=== PATIENT | female | born 1970 | race Caucasian/White ===

== ENCOUNTER → 2019-03-22 12:12 | Outpatient (BNVA) | payer MEDICARE, BC, SELFPAY | PROVIDERS: Family Provider Nurse Practitioner Family; PCP Nurse Practitioner Family; Visit Provider Nurse Practitioner Family | DX: D64.9 Anemia, unspecified (principal); E03.9 Hypothyroidism, unspecified; Z79.899 Other long term (current) drug therapy; G47.10 Hypersomnia, unspecified; E55.9 Vitamin D deficiency, unspecified | CPT/HCPCS: 36415; 80053; 81001; 82728; 83036; 83540; 83550; 84439; 84443; 84481; 85025 ==

== ENCOUNTER → 2019-03-25 08:54 | Outpatient (BNVA) | payer MEDICARE, BC, SELFPAY | PROVIDERS: Family Provider Nurse Practitioner Family; PCP Nurse Practitioner Family; Visit Provider Social Worker Clinical | DX: F43.12 Post-traumatic stress disorder, chronic (principal); F31.4 Bipolar disorder, current episode depressed, severe, without psychotic features | CPT/HCPCS: 90834 ==

== ENCOUNTER → 2019-04-04 12:52 | Outpatient (BNVA) | payer MEDICARE, BC, SELFPAY | PROVIDERS: Family Provider Nurse Practitioner Family; PCP Nurse Practitioner Family; Visit Provider Social Worker Clinical | DX: F43.12 Post-traumatic stress disorder, chronic (principal); F31.4 Bipolar disorder, current episode depressed, severe, without psychotic features | CPT/HCPCS: 90834 ==

== ENCOUNTER → 2019-04-23 12:09 | Outpatient (BNVA) | payer MEDICARE, BC, SELFPAY | PROVIDERS: Family Provider Nurse Practitioner Family; PCP Nurse Practitioner Family; Visit Provider Nurse Practitioner Family | DX: R31.9 Hematuria, unspecified (principal) | CPT/HCPCS: 81001 ==

== ENCOUNTER 2019-04-29 08:00 | Outpatient (CLI) | payer MEDICARE, BC, SELFPAY | END 2019-04-29 09:00 | disposition home or self-care (01) | LOC: SLEEP 10-01 12:50 | PROVIDERS: PCP Nurse Practitioner Family; Visit Provider Nurse Practitioner Family | DX: G47.10 Hypersomnia, unspecified (principal); F31.5 Bipolar disorder, current episode depressed, severe, with psychotic features; F43.12 Post-traumatic stress disorder, chronic | CPT/HCPCS: 90834 ==

== ENCOUNTER → 2019-05-16 09:48 | Outpatient (BNVA) | payer MEDICARE, BC, SELFPAY | PROVIDERS: Family Provider Nurse Practitioner Family; PCP Nurse Practitioner Family; Visit Provider Social Worker Clinical | DX: F43.12 Post-traumatic stress disorder, chronic (principal); F31.5 Bipolar disorder, current episode depressed, severe, with psychotic features | CPT/HCPCS: 90834 ==

== ENCOUNTER → 2019-05-23 11:07 | Outpatient (BNVA) | payer MEDICARE, BC, SELFPAY | PROVIDERS: Family Provider Nurse Practitioner Family; PCP Nurse Practitioner Family; Visit Provider Social Worker Clinical | DX: F43.12 Post-traumatic stress disorder, chronic (principal); F31.5 Bipolar disorder, current episode depressed, severe, with psychotic features | CPT/HCPCS: 90834 ==

== ENCOUNTER → 2019-05-30 08:33 | Outpatient (BNVA) | payer MEDICARE, BC, SELFPAY | PROVIDERS: Family Provider Nurse Practitioner Family; PCP Nurse Practitioner Family; Visit Provider Social Worker Clinical | DX: F43.12 Post-traumatic stress disorder, chronic (principal); F31.5 Bipolar disorder, current episode depressed, severe, with psychotic features | CPT/HCPCS: 90834 ==

== ENCOUNTER → 2019-06-06 07:53 | Outpatient (BNVA) | payer MEDICARE, BC, SELFPAY | PROVIDERS: Family Provider Nurse Practitioner Family; PCP Nurse Practitioner Family; Visit Provider Social Worker Clinical | DX: F43.12 Post-traumatic stress disorder, chronic (principal); F31.5 Bipolar disorder, current episode depressed, severe, with psychotic features | CPT/HCPCS: 90834 ==

== ENCOUNTER → 2019-06-14 07:50 | Outpatient (BNVA) | payer MEDICARE, BC, SELFPAY | PROVIDERS: Family Provider Nurse Practitioner Family; PCP Nurse Practitioner Family; Visit Provider Social Worker Clinical | DX: F43.12 Post-traumatic stress disorder, chronic (principal); F31.5 Bipolar disorder, current episode depressed, severe, with psychotic features | CPT/HCPCS: 90832 ==

== ENCOUNTER → 2019-06-20 08:14 | Outpatient (BNVA) | payer MEDICARE, BC, SELFPAY | PROVIDERS: Family Provider Nurse Practitioner Family; PCP Nurse Practitioner Family; Visit Provider Social Worker Clinical | DX: F43.12 Post-traumatic stress disorder, chronic (principal); F31.5 Bipolar disorder, current episode depressed, severe, with psychotic features | CPT/HCPCS: 90834 ==

== ENCOUNTER → 2019-06-27 08:56 | Outpatient (BNVA) | payer MEDICARE, BC, SELFPAY | PROVIDERS: Family Provider Nurse Practitioner Family; Visit Provider Social Worker Clinical | DX: F43.12 Post-traumatic stress disorder, chronic (principal); F31.5 Bipolar disorder, current episode depressed, severe, with psychotic features | CPT/HCPCS: 90834 ==

== ENCOUNTER → 2019-07-04 07:50 | Outpatient (BNVA) | payer MEDICARE, BC, SELFPAY | PROVIDERS: Family Provider Nurse Practitioner Family; Visit Provider Social Worker Clinical | DX: F43.12 Post-traumatic stress disorder, chronic (principal); F31.5 Bipolar disorder, current episode depressed, severe, with psychotic features | CPT/HCPCS: 90834 ==

== ENCOUNTER → 2019-07-10 07:48 | Outpatient (BNVA) | payer MEDICARE, BC, SELFPAY | PROVIDERS: Family Provider Nurse Practitioner Family; Referring Provider Social Worker Clinical; Visit Provider Social Worker Clinical | DX: F43.12 Post-traumatic stress disorder, chronic (principal); F31.5 Bipolar disorder, current episode depressed, severe, with psychotic features | CPT/HCPCS: 90834 ==

== ENCOUNTER → 2019-07-18 08:46 | Outpatient (BNVA) | payer MEDICARE, BC, SELFPAY | PROVIDERS: Family Provider Nurse Practitioner Family; Visit Provider Social Worker Clinical | DX: F43.12 Post-traumatic stress disorder, chronic (principal); F31.5 Bipolar disorder, current episode depressed, severe, with psychotic features | CPT/HCPCS: 90832 ==

== ENCOUNTER → 2019-07-25 08:05 | Outpatient (BNVA) | payer MEDICARE, BC, SELFPAY | PROVIDERS: Family Provider Nurse Practitioner Family; Visit Provider Social Worker Clinical | DX: F43.12 Post-traumatic stress disorder, chronic (principal); F31.5 Bipolar disorder, current episode depressed, severe, with psychotic features | CPT/HCPCS: 90834 ==

== ENCOUNTER → 2019-08-02 07:50 | Outpatient (BNVA) | payer MEDICARE, BC, SELFPAY | PROVIDERS: Family Provider Nurse Practitioner Family; Visit Provider Social Worker Clinical | DX: F43.12 Post-traumatic stress disorder, chronic (principal); F31.5 Bipolar disorder, current episode depressed, severe, with psychotic features | CPT/HCPCS: 90834 ==

== ENCOUNTER → 2019-08-09 13:38 | Outpatient (BNVA) | payer MEDICARE, BC, SELFPAY | PROVIDERS: Family Provider Nurse Practitioner Family; Visit Provider Psychiatry & Neurology Psychiatry | DX: F60.3 Borderline personality disorder (principal); F43.12 Post-traumatic stress disorder, chronic; F33.2 Major depressive disorder, recurrent severe without psychotic features; F12.20 Cannabis dependence, uncomplicated; F17.200 Nicotine dependence, unspecified, uncomplicated; F10.21 Alcohol dependence, in remission; F15.21 Other stimulant dependence, in remission | CPT/HCPCS: 99204 ==

== ENCOUNTER → 2019-08-12 10:30 | Outpatient (BNVA) | payer MEDICARE, BC, SELFPAY | PROVIDERS: Family Provider Nurse Practitioner Family; Visit Provider Nurse Practitioner Family | DX: D64.9 Anemia, unspecified (principal); E55.9 Vitamin D deficiency, unspecified; I10 Essential (primary) hypertension; E78.2 Mixed hyperlipidemia; Z79.899 Other long term (current) drug therapy; E03.9 Hypothyroidism, unspecified; R10.11 Right upper quadrant pain | CPT/HCPCS: 36415; 80053; 80061; 81001; 82150; 82306; 82607; 82728; 82746; 83036; 83550; 83690; 83735; 84439; 84443; 84481; 85025 ==

== ENCOUNTER → 2019-08-14 08:26 | Outpatient (BNVA) | payer MEDICARE, BC, SELFPAY | PROVIDERS: Family Provider Nurse Practitioner Family; Visit Provider Social Worker Clinical | DX: F43.12 Post-traumatic stress disorder, chronic (principal); F60.3 Borderline personality disorder; F33.2 Major depressive disorder, recurrent severe without psychotic features | CPT/HCPCS: 90834 ==

== ENCOUNTER → 2019-08-28 08:02 | Outpatient (BNVA) | payer MEDICARE, BC, SELFPAY | PROVIDERS: Family Provider Nurse Practitioner Family; PCP Nurse Practitioner Family; Visit Provider Social Worker Clinical | DX: F43.12 Post-traumatic stress disorder, chronic (principal); F60.3 Borderline personality disorder; F33.3 Major depressive disorder, recurrent, severe with psychotic symptoms | CPT/HCPCS: 90834 ==

== ENCOUNTER → 2019-09-13 07:52 | Outpatient (BNVA) | payer MEDICARE, BC, SELFPAY | PROVIDERS: Family Provider Nurse Practitioner Family; PCP Nurse Practitioner Family; Visit Provider Psychiatry & Neurology Psychiatry | DX: F60.3 Borderline personality disorder (principal); F43.12 Post-traumatic stress disorder, chronic; F33.2 Major depressive disorder, recurrent severe without psychotic features; F12.20 Cannabis dependence, uncomplicated; F17.200 Nicotine dependence, unspecified, uncomplicated; F10.21 Alcohol dependence, in remission; F15.21 Other stimulant dependence, in remission | CPT/HCPCS: 99213 ==

== ENCOUNTER → 2019-09-16 08:43 | Outpatient (BNVA) | payer MEDICARE, BC, SELFPAY | PROVIDERS: Family Provider Nurse Practitioner Family; PCP Nurse Practitioner Family; Visit Provider Social Worker Clinical | DX: F15.21 Other stimulant dependence, in remission (principal); F10.21 Alcohol dependence, in remission; F60.3 Borderline personality disorder; F43.12 Post-traumatic stress disorder, chronic; F33.2 Major depressive disorder, recurrent severe without psychotic features | CPT/HCPCS: 90834 ==

== ENCOUNTER → 2019-09-23 09:48 | Outpatient (BNVA) | payer MEDICARE, BC, SELFPAY | PROVIDERS: Family Provider Nurse Practitioner Family; PCP Nurse Practitioner Family; Visit Provider Social Worker Clinical | DX: F15.21 Other stimulant dependence, in remission (principal); F43.12 Post-traumatic stress disorder, chronic; F60.3 Borderline personality disorder; F33.3 Major depressive disorder, recurrent, severe with psychotic symptoms | CPT/HCPCS: 90834 ==

== ENCOUNTER → 2019-09-30 09:43 | Outpatient (BNVA) | payer MEDICARE, BC, SELFPAY | PROVIDERS: Family Provider Nurse Practitioner Family; PCP Nurse Practitioner Family; Visit Provider Social Worker Clinical | DX: F15.21 Other stimulant dependence, in remission (principal); F33.2 Major depressive disorder, recurrent severe without psychotic features; F43.12 Post-traumatic stress disorder, chronic; F60.3 Borderline personality disorder | CPT/HCPCS: 90834 ==

== ENCOUNTER → 2019-10-08 09:14 | Outpatient (BNVA) | payer MEDICARE, BC, SELFPAY | PROVIDERS: Family Provider Nurse Practitioner Family; PCP Nurse Practitioner Family; Visit Provider Social Worker Clinical | DX: F15.21 Other stimulant dependence, in remission (principal); F33.2 Major depressive disorder, recurrent severe without psychotic features; F43.12 Post-traumatic stress disorder, chronic; F60.3 Borderline personality disorder | CPT/HCPCS: 90834 ==

== ENCOUNTER → 2019-10-14 09:29 | Outpatient (BNVA) | payer MEDICARE, BC, SELFPAY | PROVIDERS: Family Provider Nurse Practitioner Family; PCP Nurse Practitioner Family; Visit Provider Psychiatry & Neurology Psychiatry | DX: F60.3 Borderline personality disorder (principal); F43.12 Post-traumatic stress disorder, chronic; F33.2 Major depressive disorder, recurrent severe without psychotic features; F12.20 Cannabis dependence, uncomplicated | CPT/HCPCS: 99213 ==

== ENCOUNTER → 2019-10-17 07:52 | Outpatient (BNVA) | payer MEDICARE, BC, SELFPAY | PROVIDERS: Family Provider Nurse Practitioner Family; PCP Nurse Practitioner Family; Visit Provider Social Worker Clinical | DX: F33.2 Major depressive disorder, recurrent severe without psychotic features (principal); F43.12 Post-traumatic stress disorder, chronic; F60.3 Borderline personality disorder | CPT/HCPCS: 90834 ==

== ENCOUNTER → 2019-10-22 08:48 | Outpatient (BNVA) | payer MEDICARE, BC, SELFPAY | PROVIDERS: Family Provider Nurse Practitioner Family; PCP Nurse Practitioner Family; Visit Provider Social Worker Clinical | DX: F33.2 Major depressive disorder, recurrent severe without psychotic features (principal); F43.12 Post-traumatic stress disorder, chronic; F60.3 Borderline personality disorder | CPT/HCPCS: 90834 ==

== ENCOUNTER → 2019-10-31 08:42 | Outpatient (BNVA) | payer MEDICARE, BC, SELFPAY | PROVIDERS: Family Provider Nurse Practitioner Family; PCP Nurse Practitioner Family; Visit Provider Social Worker Clinical | DX: F43.12 Post-traumatic stress disorder, chronic (principal); F33.3 Major depressive disorder, recurrent, severe with psychotic symptoms; F60.3 Borderline personality disorder | CPT/HCPCS: 90834 ==

== ENCOUNTER → 2019-11-05 11:41 | Outpatient (BNVA) | payer MEDICARE, BC, SELFPAY | PROVIDERS: Family Provider Nurse Practitioner Family; PCP Nurse Practitioner Family; Visit Provider Nurse Practitioner Family | DX: L02.91 Cutaneous abscess, unspecified (principal) | CPT/HCPCS: 87070 ==

== ENCOUNTER 2019-11-11 09:40 | Outpatient (CLI) | payer MEDICARE, BC, SELFPAY | END 2019-11-11 09:41 | disposition home or self-care (01) | LOC: WOUND 09:41 | PROVIDERS: Family Provider Nurse Practitioner Family; PCP Nurse Practitioner Family; Visit Provider Nurse Practitioner Family | DX: L02.416 Cutaneous abscess of left lower limb (principal); I96 Gangrene, not elsewhere classified | CPT/HCPCS: 11042; 87070; 87077; 87176; 87186; 87205; G0463 ==

== ENCOUNTER → 2019-11-13 08:11 | Outpatient (BNVA) | payer MEDICARE, BC, SELFPAY | PROVIDERS: Family Provider Nurse Practitioner Family; PCP Nurse Practitioner Family; Visit Provider Social Worker Clinical | DX: F33.2 Major depressive disorder, recurrent severe without psychotic features (principal); F43.12 Post-traumatic stress disorder, chronic; F60.3 Borderline personality disorder | CPT/HCPCS: 90832 ==

== ENCOUNTER → 2019-11-21 07:47 | Outpatient (BNVA) | payer MEDICARE, BC, SELFPAY | PROVIDERS: Family Provider Nurse Practitioner Family; Visit Provider Social Worker Clinical | DX: F33.2 Major depressive disorder, recurrent severe without psychotic features (principal); F43.12 Post-traumatic stress disorder, chronic; F60.3 Borderline personality disorder | CPT/HCPCS: 90834 ==

== ENCOUNTER 2019-11-28 10:43 | Outpatient (CLI) | payer MEDICARE, BC, SELFPAY | END 2019-11-28 10:44 | disposition home or self-care (01) | LOC: WOUND 10:44 | PROVIDERS: Family Provider Nurse Practitioner Family; Visit Provider Nurse Practitioner Family | DX: F33.2 Major depressive disorder, recurrent severe without psychotic features (principal); F43.12 Post-traumatic stress disorder, chronic; F60.3 Borderline personality disorder | CPT/HCPCS: 90834; G0463 ==

== ENCOUNTER → 2019-12-05 12:54 | Outpatient (BNVA) | payer MEDICARE, BC, SELFPAY | PROVIDERS: Family Provider Nurse Practitioner Family; PCP Nurse Practitioner Family; Visit Provider Social Worker Clinical | DX: F33.2 Major depressive disorder, recurrent severe without psychotic features (principal); F43.12 Post-traumatic stress disorder, chronic; F60.3 Borderline personality disorder | CPT/HCPCS: 90834 ==

== ENCOUNTER → 2019-12-06 07:54 | Outpatient (BNVA) | payer MEDICARE, BC, SELFPAY | PROVIDERS: Family Provider Nurse Practitioner Family; PCP Nurse Practitioner Family; Visit Provider Psychiatry & Neurology Psychiatry | DX: F60.3 Borderline personality disorder (principal); F43.12 Post-traumatic stress disorder, chronic; F33.2 Major depressive disorder, recurrent severe without psychotic features; F12.20 Cannabis dependence, uncomplicated; F17.200 Nicotine dependence, unspecified, uncomplicated; F10.21 Alcohol dependence, in remission; F15.21 Other stimulant dependence, in remission | CPT/HCPCS: 99213 ==

== ENCOUNTER → 2019-12-12 08:14 | Outpatient (BNVA) | payer MEDICARE, BC, SELFPAY | PROVIDERS: Family Provider Nurse Practitioner Family; PCP Nurse Practitioner Family; Visit Provider Social Worker Clinical | DX: F33.2 Major depressive disorder, recurrent severe without psychotic features (principal); F43.12 Post-traumatic stress disorder, chronic; F60.3 Borderline personality disorder | CPT/HCPCS: 90834 ==

== ENCOUNTER → 2019-12-19 08:29 | Outpatient (BNVA) | payer MEDICARE, BC, SELFPAY | PROVIDERS: Family Provider Nurse Practitioner Family; PCP Nurse Practitioner Family; Visit Provider Social Worker Clinical | DX: F33.2 Major depressive disorder, recurrent severe without psychotic features (principal); F43.12 Post-traumatic stress disorder, chronic; F60.3 Borderline personality disorder | CPT/HCPCS: 90834 ==

== ENCOUNTER → 2019-12-26 12:47 | Outpatient (BNVA) | payer MEDICARE, BC, SELFPAY | PROVIDERS: Family Provider Nurse Practitioner Family; PCP Nurse Practitioner Family; Visit Provider Social Worker Clinical | DX: F43.12 Post-traumatic stress disorder, chronic (principal); F33.2 Major depressive disorder, recurrent severe without psychotic features; F60.3 Borderline personality disorder | CPT/HCPCS: 90834 ==

== ENCOUNTER → 2020-01-02 08:30 | Outpatient (BNVA) | payer MEDICARE, BC, SELFPAY | PROVIDERS: Family Provider Nurse Practitioner Family; PCP Nurse Practitioner Family; Visit Provider Social Worker Clinical | DX: F33.2 Major depressive disorder, recurrent severe without psychotic features (principal); F43.12 Post-traumatic stress disorder, chronic; F60.3 Borderline personality disorder | CPT/HCPCS: 90834 ==

== ENCOUNTER → 2020-01-16 13:43 | Outpatient (BNVA) | payer MEDICARE, BC, SELFPAY | PROVIDERS: Family Provider Nurse Practitioner Family; PCP Nurse Practitioner Family; Visit Provider Social Worker Clinical | DX: F43.12 Post-traumatic stress disorder, chronic (principal); F33.2 Major depressive disorder, recurrent severe without psychotic features; F60.3 Borderline personality disorder | CPT/HCPCS: 90834 ==

== ENCOUNTER → 2020-01-23 07:43 | Outpatient (BNVA) | payer MEDICARE, BC, SELFPAY | PROVIDERS: Family Provider Nurse Practitioner Family; PCP Nurse Practitioner Family; Visit Provider Social Worker Clinical | DX: F43.12 Post-traumatic stress disorder, chronic (principal); F60.3 Borderline personality disorder; F33.3 Major depressive disorder, recurrent, severe with psychotic symptoms | CPT/HCPCS: 90834 ==

== ENCOUNTER → 2020-01-24 08:50 | Outpatient (BNVA) | payer MEDICARE, BC, SELFPAY | PROVIDERS: Family Provider Nurse Practitioner Family; PCP Nurse Practitioner Family; Visit Provider Psychiatry & Neurology Psychiatry | DX: F60.3 Borderline personality disorder (principal); F43.12 Post-traumatic stress disorder, chronic; F33.2 Major depressive disorder, recurrent severe without psychotic features; F12.20 Cannabis dependence, uncomplicated; F17.200 Nicotine dependence, unspecified, uncomplicated; F10.21 Alcohol dependence, in remission; F15.21 Other stimulant dependence, in remission | CPT/HCPCS: 99213 ==

== ENCOUNTER → 2020-02-25 08:39 | Outpatient (BNVA) | payer MEDICARE, BC, SELFPAY | PROVIDERS: Family Provider Nurse Practitioner Family; PCP Nurse Practitioner Family; Visit Provider Social Worker Clinical | DX: F43.12 Post-traumatic stress disorder, chronic (principal); F33.3 Major depressive disorder, recurrent, severe with psychotic symptoms | CPT/HCPCS: 90834 ==

== ENCOUNTER → 2020-03-03 14:50 | Outpatient (BNVA) | payer MEDICARE, BC, SELFPAY | PROVIDERS: Family Provider Nurse Practitioner Family; PCP Nurse Practitioner Family; Visit Provider Social Worker Clinical | DX: F43.12 Post-traumatic stress disorder, chronic (principal); F60.3 Borderline personality disorder; F33.3 Major depressive disorder, recurrent, severe with psychotic symptoms | CPT/HCPCS: 90834 ==

== ENCOUNTER → 2020-03-06 09:10 | Outpatient (BNVA) | payer MEDICARE, BC, SELFPAY | PROVIDERS: Family Provider Nurse Practitioner Family; PCP Nurse Practitioner Family; Visit Provider Psychiatry & Neurology Psychiatry | DX: F60.3 Borderline personality disorder (principal); F43.12 Post-traumatic stress disorder, chronic; F33.2 Major depressive disorder, recurrent severe without psychotic features; F12.20 Cannabis dependence, uncomplicated; F17.200 Nicotine dependence, unspecified, uncomplicated; F10.21 Alcohol dependence, in remission; F15.21 Other stimulant dependence, in remission | CPT/HCPCS: 99214 ==

== ENCOUNTER → 2020-03-17 14:48 | Outpatient (BNVA) | payer MEDICARE, BC, SELFPAY | PROVIDERS: Family Provider Nurse Practitioner Family; PCP Nurse Practitioner Family; Visit Provider Social Worker Clinical | DX: F33.2 Major depressive disorder, recurrent severe without psychotic features (principal); F43.12 Post-traumatic stress disorder, chronic; F60.3 Borderline personality disorder | CPT/HCPCS: 90834 ==

== ENCOUNTER → 2020-03-24 15:28 | Outpatient (BNVA) | payer MEDICARE, BC, SELFPAY | PROVIDERS: Family Provider Nurse Practitioner Family; PCP Nurse Practitioner Family; Visit Provider Social Worker Clinical | DX: F10.21 Alcohol dependence, in remission (principal); F33.2 Major depressive disorder, recurrent severe without psychotic features; F43.12 Post-traumatic stress disorder, chronic; F60.3 Borderline personality disorder | CPT/HCPCS: 90832 ==

== ENCOUNTER → 2020-03-31 08:02 | Outpatient (BNVA) | payer MEDICARE, BC, SELFPAY | PROVIDERS: Family Provider Nurse Practitioner Family; PCP Nurse Practitioner Family; Visit Provider Social Worker Clinical | DX: F15.21 Other stimulant dependence, in remission (principal); F33.2 Major depressive disorder, recurrent severe without psychotic features; F43.12 Post-traumatic stress disorder, chronic; F60.3 Borderline personality disorder | CPT/HCPCS: 90834 ==

== ENCOUNTER → 2020-04-07 08:30 | Outpatient (BNVA) | payer MEDICARE, BC, SELFPAY | PROVIDERS: Family Provider Nurse Practitioner Family; PCP Nurse Practitioner Family; Visit Provider Social Worker Clinical | DX: F60.3 Borderline personality disorder (principal); F43.12 Post-traumatic stress disorder, chronic; F33.2 Major depressive disorder, recurrent severe without psychotic features | CPT/HCPCS: 90832 ==

== ENCOUNTER → 2020-04-14 13:45 | Outpatient (BNVA) | payer MEDICARE, BC, SELFPAY | PROVIDERS: Family Provider Nurse Practitioner Family; PCP Nurse Practitioner Family; Visit Provider Social Worker Clinical | DX: F33.2 Major depressive disorder, recurrent severe without psychotic features (principal); F43.12 Post-traumatic stress disorder, chronic; F60.3 Borderline personality disorder | CPT/HCPCS: 90834 ==

== ENCOUNTER → 2020-04-20 07:50 | Outpatient (BNVA) | payer MEDICARE, BC, SELFPAY | PROVIDERS: Family Provider Nurse Practitioner Family; PCP Nurse Practitioner Family; Visit Provider Psychiatry & Neurology Psychiatry | DX: F33.2 Major depressive disorder, recurrent severe without psychotic features (principal); F43.12 Post-traumatic stress disorder, chronic; F60.3 Borderline personality disorder; F15.21 Other stimulant dependence, in remission; F10.21 Alcohol dependence, in remission; F17.200 Nicotine dependence, unspecified, uncomplicated; F12.20 Cannabis dependence, uncomplicated | CPT/HCPCS: 99214 ==

== ENCOUNTER → 2020-04-21 08:14 | Outpatient (BNVA) | payer MEDICARE, BC, SELFPAY | PROVIDERS: Family Provider Nurse Practitioner Family; PCP Nurse Practitioner Family; Visit Provider Social Worker Clinical | DX: F33.2 Major depressive disorder, recurrent severe without psychotic features (principal); F43.12 Post-traumatic stress disorder, chronic; F60.3 Borderline personality disorder | CPT/HCPCS: 90834 ==

== ENCOUNTER → 2020-04-28 08:35 | Outpatient (BNVA) | payer MEDICARE, BC, SELFPAY | PROVIDERS: Family Provider Nurse Practitioner Family; PCP Nurse Practitioner Family; Visit Provider Social Worker Clinical | DX: F33.3 Major depressive disorder, recurrent, severe with psychotic symptoms (principal) | CPT/HCPCS: 90834 ==

== ENCOUNTER → 2020-05-05 15:01 | Outpatient (BNVA) | payer MEDICARE, BC, SELFPAY | PROVIDERS: Family Provider Nurse Practitioner Family; PCP Nurse Practitioner Family; Visit Provider Social Worker Clinical | DX: F33.2 Major depressive disorder, recurrent severe without psychotic features (principal); F43.12 Post-traumatic stress disorder, chronic; F60.3 Borderline personality disorder | CPT/HCPCS: 90832; 90834 ==

== ENCOUNTER → 2020-05-14 08:59 | Outpatient (BNVA) | payer MEDICARE, BC, SELFPAY | PROVIDERS: Family Provider Nurse Practitioner Family; PCP Nurse Practitioner Family; Visit Provider Social Worker Clinical | DX: F33.3 Major depressive disorder, recurrent, severe with psychotic symptoms (principal) | CPT/HCPCS: 90834 ==

== ENCOUNTER → 2020-05-21 14:51 | Outpatient (BNVA) | payer MEDICARE, BC, SELFPAY | PROVIDERS: Family Provider Nurse Practitioner Family; PCP Nurse Practitioner Family; Visit Provider Social Worker Clinical | DX: F43.12 Post-traumatic stress disorder, chronic (principal); F60.3 Borderline personality disorder | CPT/HCPCS: 90834 ==

== ENCOUNTER → 2020-05-27 08:27 | Outpatient (BNVA) | payer MEDICARE, BC, SELFPAY | PROVIDERS: Family Provider Nurse Practitioner Family; PCP Nurse Practitioner Family; Visit Provider Psychiatry & Neurology Psychiatry | DX: F33.2 Major depressive disorder, recurrent severe without psychotic features (principal); F15.21 Other stimulant dependence, in remission; F10.21 Alcohol dependence, in remission; F17.200 Nicotine dependence, unspecified, uncomplicated; F12.20 Cannabis dependence, uncomplicated; F43.12 Post-traumatic stress disorder, chronic; F60.3 Borderline personality disorder | CPT/HCPCS: 99213 ==

== ENCOUNTER → 2020-06-03 08:01 | Outpatient (BNVA) | payer MEDICARE, BC, SELFPAY | PROVIDERS: Family Provider Nurse Practitioner Family; PCP Nurse Practitioner Family; Visit Provider Social Worker Clinical | DX: F33.2 Major depressive disorder, recurrent severe without psychotic features (principal); F43.12 Post-traumatic stress disorder, chronic; F60.3 Borderline personality disorder | CPT/HCPCS: 90834 ==

== ENCOUNTER → 2020-06-11 13:50 | Outpatient (BNVA) | payer MEDICARE, BC, SELFPAY | PROVIDERS: Family Provider Nurse Practitioner Family; PCP Nurse Practitioner Family; Visit Provider Social Worker Clinical | DX: F33.2 Major depressive disorder, recurrent severe without psychotic features (principal); F43.12 Post-traumatic stress disorder, chronic; F60.3 Borderline personality disorder | CPT/HCPCS: 90834 ==

== ENCOUNTER → 2020-06-18 07:44 | Outpatient (BNVA) | payer MEDICARE, BC, SELFPAY | PROVIDERS: Family Provider Nurse Practitioner Family; PCP Nurse Practitioner Family; Visit Provider Social Worker Clinical | DX: F33.2 Major depressive disorder, recurrent severe without psychotic features (principal); F43.12 Post-traumatic stress disorder, chronic; F60.3 Borderline personality disorder | CPT/HCPCS: 90832; 90834 ==

== ENCOUNTER → 2020-06-23 11:47 | Outpatient (BNVA) | payer MEDICARE, BC, SELFPAY | PROVIDERS: Family Provider Nurse Practitioner Family; PCP Nurse Practitioner Family; Visit Provider Nurse Practitioner Family | DX: N39.0 Urinary tract infection, site not specified (principal) | CPT/HCPCS: 81003; 87077; 87086; 87184 ==

== ENCOUNTER → 2020-06-25 07:28 | Outpatient (BNVA) | payer MEDICARE, BC, SELFPAY | PROVIDERS: Family Provider Nurse Practitioner Family; PCP Nurse Practitioner Family; Visit Provider Social Worker Clinical | DX: F33.2 Major depressive disorder, recurrent severe without psychotic features (principal); F43.12 Post-traumatic stress disorder, chronic; F60.3 Borderline personality disorder | CPT/HCPCS: 90834 ==

== ENCOUNTER → 2020-07-08 12:46 | Outpatient (BNVA) | payer MEDICARE, BC, SELFPAY | PROVIDERS: Family Provider Nurse Practitioner Family; PCP Nurse Practitioner Family; Visit Provider Social Worker Clinical | DX: F33.2 Major depressive disorder, recurrent severe without psychotic features (principal); F43.12 Post-traumatic stress disorder, chronic; F60.3 Borderline personality disorder | CPT/HCPCS: 90834 ==

== ENCOUNTER → 2020-07-23 13:46 | Outpatient (BNVA) | payer MEDICARE, BC, SELFPAY | PROVIDERS: Family Provider Nurse Practitioner Family; PCP Nurse Practitioner Family; Visit Provider Social Worker Clinical | DX: F33.2 Major depressive disorder, recurrent severe without psychotic features (principal); F43.12 Post-traumatic stress disorder, chronic; F60.3 Borderline personality disorder | CPT/HCPCS: 90791 ==

== ENCOUNTER → 2020-08-04 07:58 | Outpatient (BNVA) | payer MEDICARE, BC, SELFPAY | PROVIDERS: Family Provider Nurse Practitioner Family; PCP Nurse Practitioner Family; Visit Provider Social Worker Clinical | DX: F33.2 Major depressive disorder, recurrent severe without psychotic features (principal); F43.12 Post-traumatic stress disorder, chronic; F60.3 Borderline personality disorder | CPT/HCPCS: 90832 ==

== ENCOUNTER → 2020-08-19 12:16 | Outpatient (BNVA) | payer MEDICARE, BC, SELFPAY | PROVIDERS: Family Provider Nurse Practitioner Family; PCP Nurse Practitioner Family; Visit Provider Psychiatry & Neurology Psychiatry | DX: F33.2 Major depressive disorder, recurrent severe without psychotic features (principal); F43.12 Post-traumatic stress disorder, chronic; F60.3 Borderline personality disorder; F15.21 Other stimulant dependence, in remission; F17.200 Nicotine dependence, unspecified, uncomplicated | CPT/HCPCS: 99214 ==

== ENCOUNTER → 2020-09-28 13:46 | Outpatient (BNVA) | payer MEDICARE, BC, SELFPAY | PROVIDERS: Family Provider Nurse Practitioner Family; PCP Nurse Practitioner Family; Visit Provider Social Worker Clinical | DX: F33.2 Major depressive disorder, recurrent severe without psychotic features (principal); F43.12 Post-traumatic stress disorder, chronic; F60.3 Borderline personality disorder | CPT/HCPCS: 90834 ==

== ENCOUNTER → 2020-10-15 10:30 | Outpatient (BNVA) | payer MEDICARE, BC, SELFPAY | PROVIDERS: Family Provider Nurse Practitioner Family; PCP Nurse Practitioner Family; Visit Provider Social Worker Clinical | DX: F33.2 Major depressive disorder, recurrent severe without psychotic features (principal); F43.12 Post-traumatic stress disorder, chronic; F60.3 Borderline personality disorder | CPT/HCPCS: 90834 ==

== ENCOUNTER → 2020-10-29 08:08 | Outpatient (BNVA) | payer MEDICARE, BC, SELFPAY | PROVIDERS: Family Provider Nurse Practitioner Family; PCP Nurse Practitioner Family; Visit Provider Social Worker Clinical | DX: F33.2 Major depressive disorder, recurrent severe without psychotic features (principal); F43.12 Post-traumatic stress disorder, chronic; F60.3 Borderline personality disorder | CPT/HCPCS: 90834 ==

== ENCOUNTER → 2020-11-11 12:07 | Outpatient (BNVA) | payer MEDICARE, BC, SELFPAY | PROVIDERS: Family Provider Nurse Practitioner Family; PCP Nurse Practitioner Family; Visit Provider Psychiatry & Neurology Psychiatry | DX: F33.2 Major depressive disorder, recurrent severe without psychotic features (principal); F43.12 Post-traumatic stress disorder, chronic; F60.3 Borderline personality disorder; F17.200 Nicotine dependence, unspecified, uncomplicated; F12.20 Cannabis dependence, uncomplicated | CPT/HCPCS: 99214 ==

== ENCOUNTER → 2020-11-16 13:48 | Outpatient (BNVA) | payer MEDICARE, BC, SELFPAY | PROVIDERS: Family Provider Nurse Practitioner Family; PCP Nurse Practitioner Family; Visit Provider Social Worker Clinical | DX: F33.2 Major depressive disorder, recurrent severe without psychotic features (principal); F43.12 Post-traumatic stress disorder, chronic; F60.3 Borderline personality disorder | CPT/HCPCS: 90834 ==

== ENCOUNTER → 2020-11-30 07:59 | Outpatient (BNVA) | payer MEDICARE, BC, SELFPAY | PROVIDERS: Family Provider Nurse Practitioner Family; PCP Nurse Practitioner Family; Visit Provider Social Worker Clinical | DX: F33.2 Major depressive disorder, recurrent severe without psychotic features (principal); F43.12 Post-traumatic stress disorder, chronic; F60.3 Borderline personality disorder | CPT/HCPCS: 90832 ==

== ENCOUNTER → 2020-12-15 08:42 | Outpatient (BNVA) | payer MEDICARE, BC, SELFPAY | PROVIDERS: Family Provider Nurse Practitioner Family; PCP Nurse Practitioner Family; Visit Provider Social Worker Clinical | DX: F33.2 Major depressive disorder, recurrent severe without psychotic features (principal); F43.12 Post-traumatic stress disorder, chronic; F60.3 Borderline personality disorder | CPT/HCPCS: 90834 ==

== ENCOUNTER → 2020-12-23 12:46 | Outpatient (BNVA) | payer MEDICARE, BC, SELFPAY | PROVIDERS: Family Provider Nurse Practitioner Family; PCP Nurse Practitioner Family; Visit Provider Psychiatry & Neurology Psychiatry | DX: F33.2 Major depressive disorder, recurrent severe without psychotic features (principal); F43.12 Post-traumatic stress disorder, chronic; F60.3 Borderline personality disorder; F17.200 Nicotine dependence, unspecified, uncomplicated; F15.21 Other stimulant dependence, in remission; F10.21 Alcohol dependence, in remission; F12.20 Cannabis dependence, uncomplicated | CPT/HCPCS: 99213 ==

== ENCOUNTER → 2020-12-29 08:20 | Outpatient (BNVA) | payer MEDICARE, BC, SELFPAY | PROVIDERS: Family Provider Nurse Practitioner Family; PCP Nurse Practitioner Family; Visit Provider Social Worker Clinical | DX: F33.2 Major depressive disorder, recurrent severe without psychotic features (principal); F43.12 Post-traumatic stress disorder, chronic; F60.3 Borderline personality disorder | CPT/HCPCS: 90832 ==

== ENCOUNTER → 2021-01-12 07:36 | Outpatient (BNVA) | payer MEDICARE, BC, SELFPAY | PROVIDERS: Family Provider Nurse Practitioner Family; PCP Nurse Practitioner Family; Visit Provider Social Worker Clinical | DX: F33.2 Major depressive disorder, recurrent severe without psychotic features (principal); F43.12 Post-traumatic stress disorder, chronic; F60.3 Borderline personality disorder | CPT/HCPCS: 90832; 90834 ==

== ENCOUNTER → 2021-01-26 07:59 | Outpatient (BNVA) | payer MEDICARE, BC, SELFPAY | PROVIDERS: Family Provider Nurse Practitioner Family; PCP Nurse Practitioner Family; Visit Provider Social Worker Clinical | DX: F33.2 Major depressive disorder, recurrent severe without psychotic features (principal); F43.12 Post-traumatic stress disorder, chronic; F60.3 Borderline personality disorder | CPT/HCPCS: 90832 ==

== ENCOUNTER → 2021-02-11 07:41 | Outpatient (BNVA) | payer MEDICARE, BC, SELFPAY | PROVIDERS: Family Provider Nurse Practitioner Family; PCP Nurse Practitioner Family; Visit Provider Social Worker Clinical | DX: F33.2 Major depressive disorder, recurrent severe without psychotic features (principal); F43.12 Post-traumatic stress disorder, chronic; F60.3 Borderline personality disorder | CPT/HCPCS: 90832 ==

== ENCOUNTER → 2021-02-15 09:38 | Outpatient (BNVA) | payer MEDICARE, BC, SELFPAY | PROVIDERS: Family Provider Nurse Practitioner Family; PCP Nurse Practitioner Family; Visit Provider Psychiatry & Neurology Psychiatry | DX: F33.2 Major depressive disorder, recurrent severe without psychotic features (principal); F43.12 Post-traumatic stress disorder, chronic; F60.3 Borderline personality disorder; F15.21 Other stimulant dependence, in remission; F10.21 Alcohol dependence, in remission; F17.200 Nicotine dependence, unspecified, uncomplicated; F12.20 Cannabis dependence, uncomplicated | CPT/HCPCS: 99213 ==

== ENCOUNTER → 2021-02-23 07:47 | Outpatient (BNVA) | payer MEDICARE, BC, SELFPAY | PROVIDERS: Family Provider Nurse Practitioner Family; PCP Nurse Practitioner Family; Visit Provider Social Worker Clinical | DX: F33.2 Major depressive disorder, recurrent severe without psychotic features (principal); F43.12 Post-traumatic stress disorder, chronic; F60.3 Borderline personality disorder | CPT/HCPCS: 90832; 90834 ==

== ENCOUNTER → 2021-03-23 08:20 | Outpatient (BNVA) | payer MEDICARE, BC, SELFPAY | PROVIDERS: Family Provider Nurse Practitioner Family; PCP Nurse Practitioner Family; Visit Provider Social Worker Clinical | DX: F33.2 Major depressive disorder, recurrent severe without psychotic features (principal); F43.12 Post-traumatic stress disorder, chronic; F60.3 Borderline personality disorder | CPT/HCPCS: 90834 ==

== ENCOUNTER → 2021-04-12 12:06 | Outpatient (BNVA) | payer MEDICARE, BC, SELFPAY | PROVIDERS: Family Provider Nurse Practitioner Family; PCP Nurse Practitioner Family; Visit Provider Nurse Practitioner Family | DX: E55.9 Vitamin D deficiency, unspecified (principal); E03.9 Hypothyroidism, unspecified; Z79.899 Other long term (current) drug therapy; I10 Essential (primary) hypertension; E78.2 Mixed hyperlipidemia; D64.9 Anemia, unspecified | CPT/HCPCS: 80053; 80061; 81003; 82306; 83036; 83550; 83921; 84443; 85025 ==

== ENCOUNTER → 2021-04-26 13:21 | Outpatient (BNVA) | payer MEDICARE, BC, SELFPAY | PROVIDERS: Family Provider Nurse Practitioner Family; PCP Nurse Practitioner Family; Visit Provider Nurse Practitioner Family | DX: R31.9 Hematuria, unspecified (principal) | CPT/HCPCS: 81003; 87086 ==

== ENCOUNTER → 2021-04-28 07:58 | Outpatient (BNVA) | payer MEDICARE, BC, SELFPAY | PROVIDERS: Family Provider Nurse Practitioner Family; PCP Nurse Practitioner Family; Visit Provider Social Worker Clinical | DX: F33.2 Major depressive disorder, recurrent severe without psychotic features (principal); F43.12 Post-traumatic stress disorder, chronic; F60.3 Borderline personality disorder | CPT/HCPCS: 90834 ==

== ENCOUNTER → 2021-05-18 07:59 | Outpatient (BNVA) | payer MEDICARE, BC, SELFPAY | PROVIDERS: Family Provider Nurse Practitioner Family; PCP Nurse Practitioner Family; Visit Provider Social Worker Clinical | DX: F33.2 Major depressive disorder, recurrent severe without psychotic features (principal); F43.12 Post-traumatic stress disorder, chronic; F60.3 Borderline personality disorder | CPT/HCPCS: 90834 ==

== ENCOUNTER → 2021-05-19 12:14 | Outpatient (BNVA) | payer MEDICARE, BC, SELFPAY | PROVIDERS: Family Provider Nurse Practitioner Family; PCP Nurse Practitioner Family; Visit Provider Psychiatry & Neurology Psychiatry | DX: F33.2 Major depressive disorder, recurrent severe without psychotic features (principal); F43.12 Post-traumatic stress disorder, chronic; F60.3 Borderline personality disorder; F15.21 Other stimulant dependence, in remission; F10.21 Alcohol dependence, in remission; F17.200 Nicotine dependence, unspecified, uncomplicated; F12.20 Cannabis dependence, uncomplicated | CPT/HCPCS: 99213 ==

== ENCOUNTER → 2021-06-17 07:39 | Outpatient (BNVA) | payer MEDICARE, BC, SELFPAY | PROVIDERS: Family Provider Nurse Practitioner Family; PCP Nurse Practitioner Family; Visit Provider Social Worker Clinical | DX: F33.2 Major depressive disorder, recurrent severe without psychotic features (principal); F43.12 Post-traumatic stress disorder, chronic; F60.3 Borderline personality disorder | CPT/HCPCS: 90832 ==

== ENCOUNTER → 2021-07-08 07:33 | Outpatient (BNVA) | payer MEDICARE, BC, SELFPAY | PROVIDERS: Family Provider Nurse Practitioner Family; PCP Nurse Practitioner Family; Visit Provider Social Worker Clinical | DX: F33.2 Major depressive disorder, recurrent severe without psychotic features (principal); F43.12 Post-traumatic stress disorder, chronic; F60.3 Borderline personality disorder | CPT/HCPCS: 90791 ==

== ENCOUNTER → 2021-07-26 07:36 | Outpatient (BNVA) | payer MEDICARE, BC, SELFPAY | PROVIDERS: Family Provider Nurse Practitioner Family; PCP Nurse Practitioner Family; Visit Provider Social Worker Clinical | DX: F33.2 Major depressive disorder, recurrent severe without psychotic features (principal); F43.12 Post-traumatic stress disorder, chronic; F60.3 Borderline personality disorder | CPT/HCPCS: 90834 ==

== ENCOUNTER 2021-07-27 07:50 | Outpatient (CLI) | payer MEDICARE, BC, SELFPAY ==
--- NOTE | 2021-07-27 08:30 | CT_ITS ---
WS: [id number] CT NECK WITHOUT CONTRAST. HISTORY: L02.91 - Cutaneous abscess, unspecified, palpable area RIGHT neck. TECHNIQUE: Contiguous 5 mm axial images are performed through the neck without intravenous contrast. Sagittal and coronal reformats are also submitted. All CT scans at [facility] use at least on e of these dose optimization techniques: automated exposure control; mA and/or kV adjustment per raymond ent size (includes targeted exams where dose is matched to clinical indication); or iterative reconst ruction. CONTRAST: CONTRAST: None DLP: 430.56 mGy.cm COMPARISON: None available. Nasopharynx, oropharynx, hypopharynx and larynx are unremarkable. No soft tissue masses identified on this unenhanced study. Torus tubarius and fossa of Rosenmuller and parapharyngeal fat are normal. No significant lymphadenopathy is identified. Small bilateral cervical chain lymph nodes are identifi ed. Thyroid gland and salivary glands are normal attenuation. Degenerative disc disease and osteophytosis at C5-6 and C6-7. Visualized portions of the skull base demonstrate no abnormalities. Orbits and globes are within norm al limits. No soft tissue masses. Visualized paranasal sinuses and mastoid air cells are normal. Lung apices are clear. CT/CT neck wo con [id number] IMPRESSION: 1. No mass or significant adenopathy identified on this unenhanced CT. 2. Small bilateral cervical chain lymph nodes.
== END 2021-07-27 07:51 | disposition home or self-care (01) ==
LOC: RAD 07:52
PROVIDERS: PCP Nurse Practitioner; Visit Provider Nurse Practitioner
DX: L02.91 Cutaneous abscess, unspecified (principal)
CPT/HCPCS: 70490

== ENCOUNTER → 2022-05-05 10:27 | Outpatient (BNVA) | payer MEDICARE, BC, SELFPAY | PROVIDERS: PCP Nurse Practitioner; Visit Provider Nurse Practitioner Family | DX: I10 Essential (primary) hypertension (principal); E78.2 Mixed hyperlipidemia; E03.9 Hypothyroidism, unspecified; F33.2 Major depressive disorder, recurrent severe without psychotic features; Z79.899 Other long term (current) drug therapy | CPT/HCPCS: 80053; 80061; 84443; 85025 ==

== ENCOUNTER 2023-04-19 10:59 | Outpatient (CLI) | payer MEDICARE, BC, SELFPAY ==
--- NOTE | 2023-04-19 11:00 | MM_ITS ---
WS: [id number] Bilateral screening 3D tomosynthesis digital mammogram, 04/19/2023 Clinical Data: Z12.31 - Encounter for screening mammogram for malignant ... Comparison: None. Findings: The breast parenchymal pattern shows fibroglandular tissue. No spiculated masses or clustered calcifi cations are seen. There are no secondary signs of carcinoma. Impression: 1. Negative bilateral mammogram with no prior exam for review. 2. Recommend annual screening mammograms. MM/[place] [id number] BIRADS: 1-Negative FOLLOW UP: 1 Year Follow-up The CAD dry cleaning checker was used.
== END 2023-04-19 11:00 | disposition home or self-care (01) ==
LOC: MOBLMAM 11:05
PROVIDERS: PCP Nurse Practitioner Family; Visit Provider Nurse Practitioner Family
DX: Z12.31 Encounter for screening mammogram for malignant neoplasm of breast (principal)
CPT/HCPCS: 77063; 77067

== ENCOUNTER → 2024-03-05 14:18 | Outpatient (BNVA) | payer BC, MEDICARE, SELFPAY | PROVIDERS: PCP Nurse Practitioner Family; Visit Provider Psychiatry & Neurology Psychiatry | DX: F31.81 Bipolar II disorder (principal); F43.12 Post-traumatic stress disorder, chronic; F60.3 Borderline personality disorder; Z79.899 Other long term (current) drug therapy | CPT/HCPCS: 80053; 80061; 83036; 84443; 85025 ==

== ENCOUNTER → 2024-07-02 08:54 | Outpatient (BNVA) | payer MEDICARE, BC, SELFPAY | PROVIDERS: PCP Nurse Practitioner Family; Visit Provider Nurse Practitioner Family | DX: I10 Essential (primary) hypertension (principal); Z79.899 Other long term (current) drug therapy; E03.9 Hypothyroidism, unspecified; E78.2 Mixed hyperlipidemia | CPT/HCPCS: 80053; 80061; 81003; 82306; 82607; 83036; 83921; 84443; 85025 ==

== ENCOUNTER → 2024-09-02 09:28 | Outpatient (BNVA) | payer MEDICARE, BC, SELFPAY | PROVIDERS: PCP Nurse Practitioner Family; Visit Provider Nurse Practitioner Family | DX: R22.31 Localized swelling, mass and lump, right upper limb (principal) | CPT/HCPCS: 73110 ==

== ENCOUNTER 2024-09-18 09:11 | Outpatient (CLI) | payer MEDICARE, BC, SELFPAY ==
--- NOTE | 2024-09-18 09:30 | MRR_ITS ---
PROCEDURE INFORMATION: Exam: MR Right Upper Extremity Joint Without Contrast; Wrist Exam date and time: 09/18/2024 9:29 AM Age: 54 years old Clinical indication: Mass or lump; Right wrist pain with mass; Additional info: R22.31 - localized swelling, mass and lump, right upper limb TECHNIQUE: Imaging protocol: Magnetic resonance imaging of the right upper extremity without contrast. Exam focused on the wrist. COMPARISON: CR XR wrist RT min 3V* [id number] 09/02/2024 9:32 AM FINDINGS: Bones/joints: See Extensor compartment tendons finding. Scapholunate ligament: Unremarkable. No tear. Lunotriquetral ligament: Unremarkable. No tear. Triangular fibrocartilage complex: Unremarkable. No tear. Flexor compartment tendons: Unremarkable. No tear. Extensor compartment tendons: Soft tissue edema surrounding the 1st extensor compartment tendons proximal to, at and distal to the wrist. The tendons themselves appear mildly thickened and heterogeneous in signal at the level of the radiocarpal joint and proximal carpal row. Soft tissues: See Extensor ompartment tendons above. MR/MR wrist RT wo con* [id number] IMPRESSION: First extensor compartment tendon and sheath inflammatory changes suggestive of De Quervain's tenosynovitis. Clinical correlation is recommended.
== END 2024-09-18 09:12 | disposition home or self-care (01) ==
LOC: RAD 09:12
PROVIDERS: PCP Nurse Practitioner Family; Visit Provider Nurse Practitioner Family
DX: R22.31 Localized swelling, mass and lump, right upper limb (principal); M65.4 Radial styloid tenosynovitis [de Quervain]
CPT/HCPCS: 73221

== ENCOUNTER → 2024-09-19 10:34 | Outpatient (BNVA) | payer MEDICARE, BC, SELFPAY | PROVIDERS: PCP Nurse Practitioner Family; Visit Provider Nurse Practitioner | DX: M65.4 Radial styloid tenosynovitis [de Quervain] (principal); Z46.89 Encounter for fitting and adjustment of other specified devices | CPT/HCPCS: 20600; 73110; 99204; J3301; J9999 ==

== ENCOUNTER 2024-09-19 11:39 | Outpatient (CLI) | payer MEDICARE, BC, SELFPAY | END 2024-09-19 11:40 | disposition home or self-care (01) | LOC: SPT 11:40 | PROVIDERS: PCP Nurse Practitioner Family; Visit Provider Nurse Practitioner | DX: Z46.89 Encounter for fitting and adjustment of other specified devices (principal); M65.4 Radial styloid tenosynovitis [de Quervain] | CPT/HCPCS: L3809 ==

== ENCOUNTER → 2024-10-07 14:07 | Outpatient (BNVA) | payer MEDICARE, BC, SELFPAY | PROVIDERS: PCP Nurse Practitioner Family; Visit Provider Nurse Practitioner | DX: M65.4 Radial styloid tenosynovitis [de Quervain] (principal) | CPT/HCPCS: 99214 ==

== ENCOUNTER → 2024-10-29 08:50 | Outpatient (BNVA) | payer MEDICARE, BC, SELFPAY | PROVIDERS: PCP Nurse Practitioner Family; Visit Provider Family Medicine | DX: Z01.818 Encounter for other preprocedural examination (principal) | CPT/HCPCS: 80053; 85007; 85027 ==

== ENCOUNTER 2024-11-12 10:37 | Day surgery (SDC) | payer MEDICARE, BC, SELFPAY ==
[2024-11-12] VITALS (10 sets, daily range): BP systolic 103–168; BP diastolic 68–93; PULSE 65–94; RESP 10–24; TEMP 36.2–36.8; O2SAT 93–96; BMI 23.9
[2024-11-12] MEDS: acetaminophen 1,000 MG/100 ML PIGGYBACK 400 MG IV (11:14)
--- NOTE | 2024-11-12 11:17 | ANES.PREANE2 ---
Pre-Anesthetic Assessment Height/Weight: Height 5 ft 7 in Weight 153 lb Temp Pulse Resp BP Pulse Ox O2 Del Method 97.2 F L 76 18 103/71 96 Room Air 11/12/24 10:53 11/12/24 10:53 11/12/24 10:53 11/12/24 10:53 11/12/24 10:53 11/12/24 10:53 Preop Diagnosis: De Quervain's tendinitis Operation Date: 11/12/24 12:15 Proposed Procedures p Tenotomy Hand/Wrist De Quervain's Release(Right) - Kasia Mari MD Was Beta Serg taken within 24 hours: N/A Was Clonidine taken within 24 hours: N/A Last intake: Intake Last Liquid Date 11/11/24 Last Liquid Time 00:00 Last Solid Date 11/11/24 Last Solid Time 00:00 Social Tobacco and No alcohol Exam alert, oriented x 3 and regular rate & rhythm Airway Submandibular: within normal limits Cervical ROM: within normal limits Mallampati: Class III Comments: Comments: Edentulous Anesthetic Plan ASA status: 3 Anesthesia: General Other: No prior issues with anesthesia NPO since yesterday evening History of hypothyroidism on Synthroid Bipolar disorder Current smoker, nicotine and marijuana Labs reviewed from 10/29/2024 and acceptable for procedure Plan for general anesthesia Medications/Allergies Home Medications ?Medication ?Instructions ?Recorded ?Confirmed ?Last Taken ?Type [id number] 8 mg-folic 400 1 tab PO DAILY 08/09/19 11/11/24 11/11/24 History mcg-K 50 mcg-lutein 300 mcg tablet (Centrum Silver Women) sumatriptan succinate 100 mg tablet 100 mg PO DAILY PRN migraine 10/10/19 11/11/24 Unknown Rx headache #90 tabs albuterol sulfate 90 mcg/actuation 2 puff inhalation .Q12 Hrs PRN 07/04/24 11/11/24 Unknown Rx aerosol inhaler bronchospasm #8.5 grams Thumb spica splint #1 ea 09/19/24 10/15/24 Unknown Rx aripiprazole 10 mg tablet 10 mg PO .q hs #90 tabs 10/15/24 11/11/24 11/10/24 Rx duloxetine 60 mg capsule,delayed 60 mg PO BID #180 caps 10/15/24 11/11/24 11/11/24 Rx release lamotrigine 100 mg tablet 100 mg PO BID #180 tabs 10/15/24 11/11/24 11/11/24 Rx ergocalciferol (vitamin D2) 1,250 1,250 mcg PO Q7W 11/11/24 11/11/24 11/08/24 History mcg (50,000 unit) capsule (Vitamin D2) levothyroxine 25 mcg tablet 25 mcg PO DAILY 11/11/24 11/12/24 11/12/24 History Allergies Allergy/AdvReac Type Severity Reaction Status Date / Time codeine Allergy Severe VOMITING Verified 11/11/24 09:13 AND ITCHING vortioxetine (From Allergy Intermediate VOMITING Verified 11/11/24 09:13 Trintellix) Current Medications Generic Name Dose Route Start Last Admin Trade Name Freq PRN Reason Stop Dose Admin Sodium Chloride 1,000 mls @ 30 mls/hr 11/12/24 10:45 11/12/24 11:15 Sodium Chloride 0.9% IV 11/13/24 10:44 30 mls/hr .Q24H TAMI Administration PFSH Anesthesia Medical History Ganglion cyst of wrist Mass of right wrist Cannabis use disorder, severe, dependence Hypothyroid Breast cancer screening by mammogram Hematuria UTI (urinary tract infection), bacterial Psychiatric care Presence of orthopedic implant of bone of lower leg Major depressive disorder, recurrent, severe with psychotic symptoms Ventricular arrhythmia Atypical chest pain Palpitations Benign essential HTN RUQ abdominal pain Encounter for medication management Vitamin D deficiency Methamphetamine use disorder, severe, in sustained remission, dependence Alcohol use disorder, severe, in sustained remission Borderline personality disorder Anemia Hypersomnia Anxiety GERD without esophagitis History of cervical cancer Mild intermittent asthma Mixed hyperlipidemia Hypertension LUIS (stress urinary incontinence, female) Postsurgical menopause Vitamin B deficiency Vitamin D deficiency Surgical History S/P vaginal hysterectomy 2017 with bladder sling Family History Grandmother Heart disease Other CAD (coronary artery disease) Cancer Diabetes Hyperlipidemia Hypertension Stroke Social History Smoking and tobacco/nicotine status: current every day tobacco/nicotine user e-cigarettes E-Cigarette Details: vaporizer device and with nicotine E-cig/vape details: Cartridge/ 3 days. Quit status (tobacco/nicotine): considering quitting Second hand smoke exposure: No Alcohol intake: former Substance/Drug Use: current Substance/Drug use frequency: few times a week Other substance/drug use details: No card. Current gender identity: Female
--- NOTE | 2024-11-12 12:24 | W.PM.OPSFHP ---
Same Day Surgery H&P Indication for Procedure/HPI DATE OF PROCEDURE: November 12, 2024 CHIEF COMPLAINT/INDICATIONFOR SURGICAL PROCEDURE: De Quervain's tenosynovitis release PREOP DIAGNOSIS: Right De Quervain's tendinitis PLANNED PROCEDURE: Operation Date: 11/12/24 12:15 Proposed Procedures p Tenotomy Hand/Wrist De Quervain's Release(Right) - Kasia Mari MD Medications/Allergies* Home Medications ?Medication ?Instructions ?Recorded ?Confirmed ?Type [id number]-cehu-[id number] 8 mg-folic 400 1 tab PO DAILY 08/09/19 11/11/24 History mcg-K 50 mcg-lutein 300 mcg tablet (Centrum Silver Women) ergocalciferol (vitamin D2) 1,250 1,250 mcg PO Q7W 11/11/24 11/11/24 History mcg (50,000 unit) capsule (Vitamin D2) levothyroxine 25 mcg tablet 25 mcg PO DAILY 11/11/24 11/12/24 History Allergies/Adverse Reactions Allergy/AdvReac Type Severity Reaction Status Date / Time codeine Allergy Severe VOMITING Verified 11/11/24 09:13 AND ITCHING vortioxetine (From Allergy Intermediate VOMITING Verified 11/11/24 09:13 Trintellix) Current Medications: Generic Name Dose Route Start Last Admin Trade Name Freq PRN Reason Stop Dose Admin Sodium Chloride 1,000 mls @ 30 mls/hr 11/12/24 10:45 11/12/24 11:15 Sodium Chloride 0.9% IV 11/13/24 10:44 30 mls/hr .Q24H TAMI Administration Pertinent History/Comorbid Conditions* Medical History (Updated 10/01/24 @ 13:44 by Katherin Atwood NP) Ganglion cyst of wrist Mass of right wrist Cannabis use disorder, severe, dependence Hypothyroid Breast cancer screening by mammogram Hematuria UTI (urinary tract infection), bacterial Psychiatric care Presence of orthopedic implant of bone of lower leg Major depressive disorder, recurrent, severe with psychotic symptoms Ventricular arrhythmia Atypical chest pain Palpitations Benign essential HTN RUQ abdominal pain Encounter for medication management Vitamin D deficiency Methamphetamine use disorder, severe, in sustained remission, dependence Alcohol use disorder, severe, in sustained remission Borderline personality disorder Anemia Hypersomnia Anxiety GERD without esophagitis History of cervical cancer Mild intermittent asthma Mixed hyperlipidemia Hypertension LUIS (stress urinary incontinence, female) Postsurgical menopause Vitamin B deficiency Vitamin D deficiency Surgical History (Updated 10/01/24 @ 13:42 by Katherin Atwood NP) S/P vaginal hysterectomy 2017 with bladder sling Family History (Updated 10/01/24 @ 09:58 by Josie Gore CMA) Diabetes CAD (coronary artery disease) Heart disease Grandmother Hyperlipidemia Cancer Hypertension Stroke Social History Smoking and tobacco/nicotine status: current every day tobacco/nicotine user e-cigarettes E-Cigarette Details: vaporizer device and with nicotine E-cig/vape details: Cartridge/ 3 days. Quit status (tobacco/nicotine): considering quitting Second hand smoke exposure: No Alcohol intake: former Substance/Drug Use: current Substance/Drug use frequency: few times a week Other substance/drug use details: No card. Current gender identity: Female Pertinent Exam Findings alert, oriented x 3, clear to auscultation bilaterally (Per Dr. Olvera evaluation), regular rate & rhythm (Per Dr. Olvera evaluation), operative site marked and procedure specific exam findings (Positive Srikanth's) Recommendations Risks and benefits of procedure reviewed and Patient/family agree to proceed Surgery/Procedure today Coding Level of Care Code Acute Code for Pilyg Lea
[2024-11-12] MEDS: ceFAZolin 2,000 mg SDV 2000 MG IVP (12:38)
[2024-11-12] MEDS: BUPivacaine 0.5% INJ 30 mL XX (12:50)
--- NOTE | 2024-11-12 13:17 | P.OP_ITS ---
Operative Report Date of procedure: November 12, 2024 Pre-op diagnosis: Right de Quervain's tenosynovitis Post-op diagnosis: Right de Quervain's tenosynovitis Post-op findings: Significant inflammation with fluid within the de Quervain's canal Procedure done: Right de Quervain's tenosynovitis release Implants: None Specimens removed/disposition: None Pathology: None Surgeon: Kasia Mari MD [employer] Manager: None Anesthesia: General (Per LMA, ASA 3) Estimated blood loss (mL): 3 Tourniquet time (min): 20 (At 250 mmHg) IV fluids (mL): 600 Urine output (mL): 0 (No Cohn) Complications: None Findings: Significant inflammation within the de Quervain's canal and proximally. Fluid and erythema. Condition: stable Disposition: PACU (Then return to same-day surgery for discharge to home) Brief History: This 54-year-old woman presented to the clinic complaining of symptoms consistent with right de Quervain's tenosynovitis. She had cortisone injection which she notes still caused numbness in the thumb. She also points out some skin discoloration. There is prominence over the radial styloid, and I explained preoperatively to the patient that we will not be addressing any bony issues but rather just the soft tissue issues associated with de Quervain's tenosynovitis. The patient previously signed consents in the office. Risks and complications were once again discussed with her today. Questions were answered. She wished to proceed. Procedure: The patient was brought to the operating theater. Anesthesia provided general anesthesia per LMA, ASA 3. The patient's right upper extremity was prepped and draped in usual fashion utilizing DuraPrep. It was draped free. Tourniquet was elevated to 250 mmHg for a total tourniquet time of 20 minutes. Preoperative surgical pause was performed at which time we identified the patient, the procedure, preoperative surgical markings, and preoperative antibiotics Ancef 2 g. The radial styloid was palpated and an incision was made horizontally approximately 1 cm proximal to the tip of the radial styloid. Dissection continued through the skin and dermis but following that soft tissue blunt dissection was accomplished to prevent injury to the superficial radial nerve branches in the area. We were able to retract these branches and the first dorsal compartment was visualized. The fibrous tissue over the first dorsal compartment was noted to be quite thickened and erythematous. This was released longitudinally using a combination of scalpel and scissors. We then confirmed that each of the tendons at been released. There was one abductor pollicis longus tendons and one extensor pollicis brevis tendon. Prior to release of de Quervain's canal, there was fluid surrounding the tendons. Proximally, there was also erythema around the tendons. All of these were released at least a centimeter distal to the radial styloid and proximally as well. There was no further compression across the tendons. The tendons were pulled up out of the tunnel for evaluation. Following this, the wound was irrigated. Attention was then directed to closure. Closure was accomplished with 4-0 Monocryl in a subcuticular suture was placed in a running fashion. We injected the wound with half percent Marcaine plain for local anesthetic. This was followed by Dermabond and OpSite. We then placed fluffed fluffs followed by soft roll and an Rio wrap. Patient was returned to Recovery Room in a satisfactory condition and will be discharged home to follow-up with me in the office. There were no specimens and no complications. Related Problem List Diagnoses 1. De Quervain's disease (tenosynovitis):
--- NOTE | 2024-11-12 14:17 | ANE.PACU2 ---
Inpatient post-anesthesia follow up: Airway intact: Yes Vital signs: Temperature 98.2 F Pulse Rate 70 Respiratory Rate 18 Blood Pressure 122/82 Pulse Oximetry 94 Oxygen Delivery Me thod Room Air Oxygen Flow Rate Fraction of Inspir ed Oxygen Hydration adequate: Yes Nausea and vomiting: No Pain level: 1 Mental status: Baseline
[2024-11-12] MEDS: HYDROcodone-acetaminophen 5-325 mg Tablet 1 TAB PO (14:41)
== END 2024-11-12 15:00 | disposition home or self-care (01) ==
PROVIDERS: PCP Nurse Practitioner Family; Visit Provider Specialist
PROC: (CPT 25000; principal; 2024-11-12 12:15)
DX: M65.4 Radial styloid tenosynovitis [de Quervain] (principal); E03.9 Hypothyroidism, unspecified; F32.9 Major depressive disorder, single episode, unspecified; I47.0 Re-entry ventricular arrhythmia; R00.2 Palpitations; I10 Essential (primary) hypertension; F15.90 Other stimulant use, unspecified, uncomplicated; D64.9 Anemia, unspecified; F41.9 Anxiety disorder, unspecified; K21.9 Gastro-esophageal reflux disease without esophagitis; Z85.41 Personal history of malignant neoplasm of cervix uteri; E78.2 Mixed hyperlipidemia; J45.20 Mild intermittent asthma, uncomplicated; F17.290 Nicotine dependence, other tobacco product, uncomplicated; F12.90 Cannabis use, unspecified, uncomplicated
CPT/HCPCS: 25000; J0131; J0690; J1100; J2250; J2405; J2704; J3010; J3490; J7030; J9999

== ENCOUNTER → 2024-12-06 10:32 | Outpatient (BNVA) | payer MEDICARE, BC, SELFPAY | PROVIDERS: PCP Nurse Practitioner Family; Visit Provider Nurse Practitioner | DX: Z98.890 Other specified postprocedural states (principal) | CPT/HCPCS: 99024 ==